=== PATIENT | male | born 1975 | race Caucasian/White ===

== ENCOUNTER 2016-12-24 10:57 | Emergency (ER) | payer SELFPAY | END 2016-12-24 13:00 | disposition home or self-care (01) | LOC: FER 10:57 | DX: G57.02 Lesion of sciatic nerve, left lower limb (principal); M54.2 Cervicalgia; M54.6 Pain in thoracic spine; M50.31 Other cervical disc degeneration, high cervical region; F17.210 Nicotine dependence, cigarettes, uncomplicated | CPT/HCPCS: 72125; 72128; 72131; J1100 ==